=== PATIENT | female | born 1975 | race Caucasian/White ===

== ENCOUNTER → 2017-02-18 | Outpatient (CLI) | payer BC ==
[~2017-02-18] MED LIST: ACET65TA; COLA100C2; FLAG500T; FOLI1TAB OR; HYDROXYZINE PO; IBUP600T; LEVA500T; LOR; LORA0.5T OR; PERC5TAB8; THERGRAN OR; THIA100T OR; TRAM50TA2 OR; TRAZ50TA OR; XANA0.25; ZOLO100T OR; ZOLOFT PO; zoloft PO
--- NOTE | 2017-02-19 03:07 | REP ---
Clinical: Pain without recent trauma/injury. Technique: Neutral and frog lateral views of the right hip. Findings: Increased sclerosis to the acetabulum with decreased medial joint space suggest mild degenerative change. No spurring/osteophyte formation or obvious periarticular calcifications. No acute fracture dislocation. Impression: Mild degenerative changes suggested. Signed by Doug Orourke MD 02/19/2017 02:59 A
== END ==
LOC: M CLY 13:53
PROVIDERS: ATTEND Nurse Practitioner
DX: M16.11 Unilateral primary osteoarthritis, right hip (principal)

== ENCOUNTER → 2020-01-27 | Outpatient (CLI) | payer BC ==
[~2020-01-27] MED LIST changes: +ASPI81TA85 PO; +ATOR80TA59 PO; +BRIL90TA PO; +EPLE25TA PO; +ESCI20TA PO; +HYDR500C PO; +LISI2.5T2 PO; +LORA1TAB4 PO; +METO1TAB32 PO; +TRAZ-257 PO
--- NOTE | 2020-01-28 08:13 | REP ---
Clinical: Myeloproliferative disease. Technique: The real time schumacher scale and color evaluation using curved array transducer. Findings: Liver and pancreas are normal in contour, size, echogenicity without focal hepatic or pancreatic lesion identified. The spleen demonstrates heterogeneous echotexture with areas of hyperechogenicity and measures 10.2 x 4.3 x 6.1 cm. Gallbladder is normal and without gallstones, wall thickening, or pericholecystic fluid. No biliary ductal dilatation is appreciated and the common bile duct measures 2.7 mm diameter. Bilateral kidneys are normal in appearance and vascularity without hydronephrosis. Right kidney measures 11.4 x 5.4 x 4.7 cm (RI 0.43). Left kidney measures 11.0 x 4.1 x 3.8 cm (RI 0.57). Visualized abdominal aorta normal. No obvious ascites. Impression: 1. Heterogeneous appearance to the spleen of uncertain etiology without splenomegaly or discrete focal splenic lesion identified.
== END ==
LOC: M PLAIMG 09:15
PROVIDERS: ATTEND Internal Medicine Hematology & Oncology
DX: C94.6 Myelodysplastic disease, not elsewhere classified (principal); D73.9 Disease of spleen, unspecified

== ENCOUNTER → 2023-08-20 | Outpatient (CLI) | payer BC ==
[~2023-08-20] MED LIST changes: -ASPI81TA85 PO; +ASPI81TA86 PO; +BUPR300T92 PO; +CLON1TAB8 PO; +ECOT81TA5 PO; +ENTR1TAB PO; -ESCI20TA PO; +ESCI20TA16 PO; +ESCI5SOL3 PO; +FARX1TAB3 PO; +FURO20TA2 PO; +HYDR-4429 PO; +HYDR-4517 PO; +HYDR500C3 PO; +LEXA1TAB2 PO; -LISI2.5T2 PO; +LISI2.5T9 PO; +LORA1TAB23 PO; -LORA1TAB4 PO; +NITR0.4S14 PO; +VRAY1.5C PO
== END ==
LOC: M RAD 07:50
PROVIDERS: ATTEND Internal Medicine Medical Oncology
DX: D69.6 Thrombocytopenia, unspecified (principal); R10.31 Right lower quadrant pain